=== PATIENT | male | born 1985 | race Caucasian/White ===

== ENCOUNTER 2017-09-18 09:52 | Emergency (ER) | payer MEDICAID ==
[~2017-09-18] VITALS: Ht 175.3 cm; Wt 64.0 kg
[~2017-09-18 09:52] MED LIST: ALBU8.5H8 IH
[2017-09-18] MEDS ORDERED: levetiracetam inj 1,000 MG in normal saline 100ml IV soln 90 ML IV STA (10:07)
[2017-09-18] MEDS ORDERED: morphine 4 MG/ML inj SYRINge IV ONE (10:10)
[2017-09-18] MEDS ORDERED: ondansetron 4mg rapidly disintigrating tab PO ONE (10:10)
[2017-09-18] MEDS ORDERED: normal saline 1000ML IV soln IVB ONE (10:10)
[2017-09-18 10:44] LABS: BASOPHILS % (AUTO) 0.6 % (0-1); EOSINOPHILS # (AUTO) 0.1 X10'3 (0-0.9); EOSINOPHILS % (AUTO) 1.8 % (0-6); HEMOGLOBIN 14.9 g/dl (14.0-17.9); LYMPHOCYTES # (AUTO) 0.8 X10'3 (1.1-4.8); LYMPHOCYTES % (AUTO) 17.8 % (21-51); MEAN CORPUSCULAR HEMOGLOBIN 31.1 PG (27.0-31.0); MEAN CORPUSCULAR HGB CONC 34.6 % (33.0-36.5); MEAN CORPUSCULAR VOLUME 89.8 FL (78-98); MEAN PLATELET VOLUME 8.9 FL (7.4-10.4); MONOCYTES # (AUTO) 0.3 X10'3 (0-0.9); MONOCYTES % (AUTO) 5.6 % (2-12); NEUTROPHILS # (AUTO) 3.5 X10'3 (1.8-7.7); NEUTROPHILS % (AUTO) 74.2 % (42-75); PLATELET COUNT 131 X10'3 (140-440); RED BLOOD COUNT 4.79 X10'6 (4.70-6.10); RED CELL DISTRIBUTION WIDTH 14.2 % (11.5-14.5); WHITE BLOOD COUNT 4.7 X10'3 (4.5-11.0)
[2017-09-18 10:58] LABS: ALANINE AMINOTRANSFERASE 21 U/L (12-78); ALBUMIN 4.2 G/DL (3.4-5.0); ALBUMIN/GLOBULIN RATIO 1.3 (1.1-1.5); ALKALINE PHOSPHATASE 87 IU/L (46-116); ANION GAP 11 (8-16); ASPARTATE AMINO TRANSFERASE 20 U/L (10-37); BILIRUBIN,TOTAL 0.4 MG/DL (0.1-1.0); BLOOD UREA NITROGEN 16 MG/DL (7-18); CHLORIDE 103 MMOL/L (99-107); CREATININE 0.89 MG/DL (0.60-1.10); GLUCOSE 77 MG/DL (70-104); POTASSIUM 4.1 MMOL/L (3.5-5.1); SODIUM 139 MMOL/L (135-145); TOTAL CARBON DIOXIDE 25.1 MMOL/L (24-32); TOTAL PROTEIN 7.5 G/DL (6.4-8.2); eGFR > 90 ML/MIN
[2017-09-18] MEDS ORDERED: PHEN100C4 PO (11:16)
[2017-09-18] MEDS ORDERED: LEVE750T6 PO (11:16)
[2017-09-18 11:18] LABS: PHENYTOIN (DILANTIN) 3.5 UG/ML (10.0-20.0)
[2017-09-18 11:41] VITALS: BP 98/58
== END 2017-09-18 11:48 | disposition home or self-care (01) ==
LOC: ER 09:53
DX: S00.83XA Contusion of other part of head, initial encounter (principal); R56.9 Unspecified convulsions; Z79.899 Other long term (current) drug therapy; W19.XXXA Unspecified fall, initial encounter; Y93.89 Activity, other specified; Y92.89 Other specified places as the place of occurrence of the external cause; Y99.8 Other external cause status
CPT/HCPCS: 36415; 70450; 71045; 72125; 80053; 80185; 85025; 96365; 99285; J1953; J7030; J2270

== ENCOUNTER 2017-12-06 18:28 | Emergency (ER) | payer MEDICAID ==
[~2017-12-06] VITALS: Ht 170.2 cm; Wt 53.0 kg
[~2017-12-06 18:28] MED LIST changes: +LEVE750T6 PO; +PHEN100C4 PO
[2017-12-06 18:32] VITALS: BP 122/72
[2017-12-06] MEDS ORDERED: AZIT-63 PO (20:43)
[2017-12-06] MEDS ORDERED: BENZ-16 PO (20:43)
== END 2017-12-06 20:51 | disposition home or self-care (01) ==
LOC: ER 18:29
DX: R05 Cough (principal); Z79.899 Other long term (current) drug therapy
CPT/HCPCS: 71045; 99283

== ENCOUNTER 2018-01-12 21:02 | Emergency (ER) | payer MEDICAID ==
[~2018-01-12] VITALS: Ht 175.3 cm; Wt 66.2 kg
[2018-01-12 21:06] VITALS: BP 119/68
== END 2018-01-12 21:28 | disposition home or self-care (01) ==
LOC: ER 21:03
DX: Q82.9 Congenital malformation of skin, unspecified (principal); F12.10 Cannabis abuse, uncomplicated; Z79.899 Other long term (current) drug therapy
CPT/HCPCS: 99281

== ENCOUNTER 2018-03-22 13:45 | Emergency (ER) | payer MEDICAID ==
[~2018-03-22] VITALS: Ht 175.3 cm; Wt 71.0 kg
[2018-03-22 13:51] VITALS: BP 121/81
== END 2018-03-22 16:25 | disposition home or self-care (01) ==
LOC: ER 13:46
DX: F41.9 Anxiety disorder, unspecified (principal); F12.90 Cannabis use, unspecified, uncomplicated
CPT/HCPCS: 36415; 80185; 99283

== ENCOUNTER 2020-02-04 15:24 | Emergency (ER) | payer MEDICAID ==
[~2020-02-04] VITALS: Ht 172.7 cm; Wt 65.0 kg
--- NOTE | 2020-02-04 15:38 | NUR ---
Pt discussed with TAYLA Moreau. Orders for xray placed per verbal order.
[2020-02-04 18:06] VITALS: BP 113/76
== END 2020-02-04 18:07 | disposition home or self-care (01) ==
LOC: ER 15:26
DX: S62.390A Other fracture of second metacarpal bone, right hand, initial encounter for closed fracture (principal); S39.012A Strain of muscle, fascia and tendon of lower back, initial encounter; F12.90 Cannabis use, unspecified, uncomplicated; Z86.69 Personal history of other diseases of the nervous system and sense organs; Z98.890 Other specified postprocedural states; Z79.899 Other long term (current) drug therapy; V29.9XXA Motorcycle rider (driver) (passenger) injured in unspecified traffic accident, initial encounter; Y93.89 Activity, other specified; Y92.410 Unspecified street and highway as the place of occurrence of the external cause; Y99.8 Other external cause status
CPT/HCPCS: 29125; 72100; 72170; 73110; 73130; 73564; 99283; 99284

== ENCOUNTER 2020-02-06 11:09 | Emergency (ER) | payer MEDICAID, OTHER ==
[~2020-02-06] VITALS: Ht 175.3 cm; Wt 66.0 kg
[2020-02-06 11:29] VITALS: BP 117/90
--- NOTE | 2020-02-06 12:30 | NUR ---
Spoke to Jacques regarding referral to Dr. Hansen, who are able to facilitate this if they can get a copy of visit record. Records release signed and ER notes/imaging reports faxed over.
== END 2020-02-06 13:37 | disposition home or self-care (01) ==
LOC: ER 11:10
DX: S62.91XA Unspecified fracture of right hand, initial encounter for closed fracture (principal); Z79.899 Other long term (current) drug therapy; V49.9XXA Car occupant (driver) (passenger) injured in unspecified traffic accident, initial encounter; Y93.89 Activity, other specified; Y92.89 Other specified places as the place of occurrence of the external cause; Y99.8 Other external cause status
CPT/HCPCS: 29125; 99283

== ENCOUNTER 2021-10-04 17:15 | Emergency (ER) | payer MEDICAID, OTHER ==
[~2021-10-04] VITALS: Ht 175.3 cm; Wt 75.0 kg
[~2021-10-04 17:15] MED LIST changes: +ALBU8.5H17 IH; -ALBU8.5H8 IH
[2021-10-04 17:16] VITALS: BP 125/69
== END 2021-10-04 19:17 | disposition home or self-care (01) ==
LOC: ER 17:15
DX: J39.2 Other diseases of pharynx (principal); F12.10 Cannabis abuse, uncomplicated; Z87.81 Personal history of (healed) traumatic fracture; Z79.899 Other long term (current) drug therapy
CPT/HCPCS: 99282

== ENCOUNTER 2021-10-17 12:04 | Emergency (ER) | payer MEDICAID ==
[~2021-10-17] VITALS: Ht 175.3 cm; Wt 72.7 kg
[~2021-10-17 12:04] MED LIST changes: +ONDA-104 PO
[2021-10-17 12:11] VITALS: BP 130/68
== END 2021-10-17 18:29 | disposition home or self-care (01) ==
LOC: ER 12:05
DX: S62.637A Displaced fracture of distal phalanx of left little finger, initial encounter for closed fracture (principal); S62.634A Displaced fracture of distal phalanx of right ring finger, initial encounter for closed fracture; F12.90 Cannabis use, unspecified, uncomplicated; Z88.5 Allergy status to narcotic agent; Z87.891 Personal history of nicotine dependence; V19.9XXA Pedal cyclist (driver) (passenger) injured in unspecified traffic accident, initial encounter; Y93.89 Activity, other specified; Y92.89 Other specified places as the place of occurrence of the external cause; Y99.8 Other external cause status
CPT/HCPCS: 73130; 99283

== ENCOUNTER 2022-10-05 12:38 | Emergency (ER) | payer MEDICAID ==
[~2022-10-05] VITALS: Ht 172.7 cm; Wt 67.8 kg
[2022-10-05] MEDS ORDERED: LIDOcaine 5% patch TP STA (14:39)
[2022-10-05] MEDS ORDERED: ketorolac trometh inj. 60 MG/2 ML VIAL IM ONE (14:40)
[2022-10-05 15:26] VITALS: BP 129/81
== END 2022-10-05 15:32 | disposition home or self-care (01) ==
LOC: ER 12:38
DX: S39.012A Strain of muscle, fascia and tendon of lower back, initial encounter (principal); M54.2 Cervicalgia; R42 Dizziness and giddiness; R41.0 Disorientation, unspecified; Z87.81 Personal history of (healed) traumatic fracture; Z88.5 Allergy status to narcotic agent; Z79.899 Other long term (current) drug therapy; X58.XXXA Exposure to other specified factors, initial encounter; Y93.89 Activity, other specified; Y92.89 Other specified places as the place of occurrence of the external cause; Y99.8 Other external cause status
CPT/HCPCS: 82948; 96372; 99283; J1885

== ENCOUNTER 2023-07-01 12:16 | Emergency (ER) | payer MEDICAID ==
[~2023-07-01] VITALS: Ht 175.3 cm; Wt 73.5 kg
[2023-07-01 12:22] VITALS: BP 135/114; PULSE 72; RESP 16; TEMP 98.2; O2SAT 96
[2023-07-01] MEDS ORDERED: hydrocortisone acetate 25mg rectal suppository RC PRN (16:15)
[2023-07-01] MEDS: magnesium hydroxide 30ml (MOM) UD suspension PO ONE (16:26)
[2023-07-01] MEDS: ibuprofen tablet 400 MG TABLET PO ONE (16:27)
[2023-07-01] MEDS: LORazepam 1 MG tablet PO ONE (16:27)
[2023-07-01] MEDS ORDERED: BISA-155 PO (16:33)
[2023-07-01] MEDS ORDERED: HYDR25SU32 RC (16:33)
== END 2023-07-01 16:47 | disposition home or self-care (01) ==
LOC: ER 12:17
DX: K62.89 Other specified diseases of anus and rectum (principal); Z79.899 Other long term (current) drug therapy
CPT/HCPCS: 99284